=== PATIENT | male | born 1945 | race Caucasian/White ===

== ENCOUNTER 2020-09-11 21:01 | Emergency (ER) | payer OTHER ==
[~2020-09-11] VITALS: Ht 152.4 cm; Wt 72.6 kg
[2020-09-11] MEDS ORDERED: PLAVIX75 MG (21:29)
[2020-09-11] MEDS ORDERED: ADULT LOW DOSE81 M1 (21:29)
== END 2020-09-12 11:18 | disposition home or self-care (01) ==
LOC: ER 21:01
DX: S30.1XXA Contusion of abdominal wall, initial encounter (principal); S20.224A Contusion of middle back wall of thorax, initial encounter; S20.212A Contusion of left front wall of thorax, initial encounter; S40.012A Contusion of left shoulder, initial encounter; S00.83XA Contusion of other part of head, initial encounter; H11.32 Conjunctival hemorrhage, left eye; R55 Syncope and collapse; V09.29XA Pedestrian injured in traffic accident involving other motor vehicles, initial encounter; Y93.89 Activity, other specified; Y92.413 State road as the place of occurrence of the external cause; Y99.8 Other external cause status